=== PATIENT | male | born 1940 | race Caucasian/White ===

== ENCOUNTER → 2024-08-19 | Outpatient (CLI) | payer OTHER ==
--- NOTE | 2024-08-19 15:16 | HMCIMG ---
Exam Type: CT lumbar spine without contrast Technique: Spiral axial images were performed from T12 to the sacrum. Both sagittal and coronal reconstructions were performed. Findings: There is normal alignment of the vertebral bodies. There are no fractures. There is facet hypertrophy. There are spondylitic changes. Multilevel protrusions seen and there is grade 1 anterolisthesis of L4 over L5 caused by degeneration of the facet joints. The prevertebral soft tissues are normal. IMPRESSION: Severe degenerative changes as noted.
--- NOTE | 2024-08-19 15:48 | HMCIMG ---
Exam Type: CERV SPINE 4-5 VWS Clinical Information: C SPINE W/ FLEX EXTENSION Comparison: None FINDINGS: C1 through the top of T1 are seen on the lateral view. The prevertebral soft tissues are normal. No fractures or dislocations are seen. There are spondylytic changes and there are degenerative changes of the facet joints. There is narrowing of the C5-6 and C6-7 discs consistent with degenerative disc disease. The other disc spaces are intact. There is straightening and reversal of normal lordosis consistent with spasm. IMPRESSION: Degenerative changes as noted.
== END | disposition home or self-care (01) ==
LOC: RAH 13:20
PROVIDERS: ATTEND Physical Medicine & Rehabilitation
DX: M47.816 Spondylosis without myelopathy or radiculopathy, lumbar region (principal); M47.812 Spondylosis without myelopathy or radiculopathy, cervical region; M48.061 Spinal stenosis, lumbar region without neurogenic claudication; M48.02 Spinal stenosis, cervical region
CPT/HCPCS: 72050; 72131